=== PATIENT | female | born 1980 | race Caucasian/White ===

== ENCOUNTER → 2023-08-19 06:46 | Outpatient (REF) | payer BC, SELFPAY | LOC: WDC 06:46 | PROVIDERS: ATTENDING PHYSICIAN Obstetrics & Gynecology | DX: Z12.31 Encounter for screening mammogram for malignant neoplasm of breast (principal) | CPT/HCPCS: 77063; 77067 ==

== ENCOUNTER → 2024-01-06 06:53 | Outpatient (REF) | payer BC, SELFPAY | LOC: RAD 06:53 | PROVIDERS: ATTENDING PHYSICIAN Otolaryngology; REFERRING PHYSICIAN Pediatrics | DX: J32.4 Chronic pansinusitis (principal) | CPT/HCPCS: 70486 ==

== ENCOUNTER → 2024-02-20 01:00 | Outpatient (REF) | payer BC, SELFPAY | LOC: CLAB 01:00 | PROVIDERS: ATTENDING PHYSICIAN Otolaryngology | DX: J32.4 Chronic pansinusitis (principal) | CPT/HCPCS: 88304; 88311 ==

== ENCOUNTER → 2024-05-01 10:07 | Outpatient (REF) | payer BC, SELFPAY | LOC: HWRAD 10:07 | PROVIDERS: ATTENDING PHYSICIAN Nurse Practitioner Family; REFERRING PHYSICIAN Pediatrics | DX: J45.909 Unspecified asthma, uncomplicated (principal); J98.8 Other specified respiratory disorders | CPT/HCPCS: 71250 ==

== ENCOUNTER → 2024-10-02 08:27 | Outpatient (REF) | payer BC, SELFPAY | LOC: WDC 08:27 | PROVIDERS: ATTENDING PHYSICIAN Obstetrics & Gynecology | DX: Z12.31 Encounter for screening mammogram for malignant neoplasm of breast (principal) | CPT/HCPCS: 77063; 77067 ==

== ENCOUNTER → 2025-03-18 14:30 | Outpatient (REF) | payer BC, SELFPAY | LOC: WDC 14:30 | PROVIDERS: ATTENDING PHYSICIAN Obstetrics & Gynecology | DX: R92.2 Inconclusive mammogram (principal) | CPT/HCPCS: 76641 ==